=== PATIENT | female | born 1985 | race African-American/Black ===

== ENCOUNTER 2018-09-06 12:09 | Emergency (ER) | payer OTHER, MEDICAID ==
[2018-09-06] MEDS ORDERED: KETOROLAC 60 MG/2 ML VIAL IM STA (12:57)
[2018-09-06] MEDS ORDERED: DEXAMETHASONE 10 MG/ML VIAL PO STA (12:57)
--- NOTE | 2018-09-06 13:00 | ED Physician Documentation ---
PD HPI BACK PAIN - Stated complaint Stated Complaint: BACK PX - Chief complaint Chief Complaint: Back Pain - History obtained from History obtained from: Patient - History of Present Illness Timing - onset: Yesterday Timing - details: Gradual onset, Still present Location: Lower, Right Quality: Pain, Spasm Worsened by: Lifting, Twisting Contributing factors: Lifting Similar symptoms before: Diagnosis (Back strain) - Additional information Additional information: The patient is a 33-year-old female who works at [employer], and presents with lower back pain. Her pain started yesterday after lifting a resident of the floor. It is in her lower back radiating down her right leg. The pain today is worse than it was yesterday. She denies fever, urinary incontinence, numbness or weakness. She has history of similar symptoms occasionally in the past. Review of Systems Constitutional: denies: Fever Throat: denies: Sore throat Cardiac: denies: Chest pain / pressure Respiratory: denies: Dyspnea, Cough GI: denies: Abdominal Pain, Nausea, Vomiting : denies: Dysuria, Incontinent Skin: denies: Rash Musculoskeletal: reports: Back pain. 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 - Present Medications Home Medications: Ambulatory Orders Medication Instructions Recorded Confirmed Cyclobenzaprine [Flexeril] 10 mg PO TID PRN #20 tablet 09/06/18 Lidocaine Patch 5% [Lidoderm Patch] 1 patch TOP DAILY PRN #10 patch 09/06/18 - Allergies Allergies/Adverse Reactions: Allergies Allergy/AdvReac Type Severity Reaction Status Date / Time No Known Drug Allergies Allergy Verified 09/06/18 12:19 - Social History Does the pt smoke?: Yes Smoking Status: Current every day smoker Does the pt drink ETOH?: Yes Does the pt have substance abuse?: No - Immunizations Immunizations are current?: Yes PD ED PE NORMAL - Vitals Vital signs reviewed: Yes (Borderline hypertension initially.) - General General: Alert and oriented X 3, Well developed/nourished, Other (Overweight) - HEENT HEENT: Atraumatic, Pharynx benign - Neck Neck: No bony TTP, No adenopathy - Cardiac Cardiac: RRR - Respiratory Respiratory: No respiratory distress, Clear bilaterally - Abdomen Abdomen: Soft, Non tender - Back Back: No CVA TTP, No spinal TTP, Other (Tenderness to palpation in the para lumbar musculature bilaterally. No tenderness to palpation along the spinous processes.) - Derm Derm: No rash - Extremities Extremities: No edema, No calf tenderness / cord, Other (Straight leg raise test is negative bilaterally.) - Neuro Neuro: Alert and oriented X 3, No motor deficit, No sensory deficit, Other (Deep tendon reflexes 2+ and equal bilaterally at the patellar and Achilles tendons.) Results - Vitals Vitals: Vital Signs - 24 hr 09/06/18 09/06/18 12:17 13:58 Temperature 35.8 C L 36.6 C Heart Rate 90 85 Respiratory 18 16 Rate Blood Pressure 143/89 H 126/82 H O2 Saturation 99 99 Oxygen O2 Source Room air PD MEDICAL DECISION MAKING - ED course Complexity details: re-evaluated patient, considered differential, d/w patient, other (an L & I form was completed.) ED course: The patient's lower back pain is most consistent with muscle strain. The clinical presentation does not suggest epidural abscess, spinal stenosis, or cauda equina syndrome. Treatment in the emergency department included administration of ketorolac 60 mg IM, and dexamethasone 10 mg orally.. The patient is being discharged with prescription for Flexeril and for lidocaine patch. I discussed with her the expected course of illness, symptomatic treatment and outpatient follow-up, as well as potentially worrisome signs or symptoms that should prompt reevaluation in the emergency department. Departure - Departure Disposition: 01 Home, Self Care Clinical Impression: Acute lumbar myofascial strain Qualifiers: Encounter type: initial encounter Qualified Code(s): S39.012A - Strain of muscle, fascia and tendon of lower back, initial encounter Condition: Stable Instructions: ED Low Back Pain Injury Follow-Up: Oriana Randolph PA-C [Primary Care Provider] - Prescriptions: Cyclobenzaprine [Flexeril] 10 mg PO TID PRN #20 tablet PRN Reason: Spasms Lidocaine Patch 5% [Lidoderm Patch] 1 patch TOP DAILY PRN #10 patch PRN Reason: pain Comments: Apply ice pack to your lower back intermittently for the next 3 days. You can use lidocaine patch as prescribed if needed for pain. Take prednisone daily as prescribed. After you are no longer using prednisone, you can use ibuprofen, up to 800 mg 3 times daily. Follow-up with primary physician within 2 weeks. Call to schedule appointment. Return to the emergency department if you develop increasing pain, or otherwise worsening symptoms. Forms: Activity restrictions Discharge Date/Time: 09/06/18 13:59
[2018-09-06] MEDS ORDERED: CHERRY SYRUP 10 ML UDC PO ONE (13:14)
[2018-09-06 13:59] VITALS: BP 126/82
== END 2018-09-06 13:59 | disposition home or self-care (01) ==
LOC: ED 12:09
DX: F17.200 Nicotine dependence, unspecified, uncomplicated (principal); S39.012A Strain of muscle, fascia and tendon of lower back, initial encounter; X50.0XXA Overexertion from strenuous movement or load, initial encounter; X50.9XXA Other and unspecified overexertion or strenuous movements or postures, initial encounter; Y93.F2 Activity, caregiving, lifting; Y92.129 Unspecified place in nursing home as the place of occurrence of the external cause; Y99.0 Civilian activity done for income or pay
CPT/HCPCS: 1040M; 96372; 99283; A9270

== ENCOUNTER 2018-10-11 20:55 | Emergency (ER) | payer MEDICAID ==
[2018-10-11 21:12] VITALS: BP 120/90
[2018-10-11] MEDS ORDERED: CLINDAMYCIN 150 MG CAPSULE PO STA (21:16)
[2018-10-11] MEDS ORDERED: KETOROLAC 60 MG/2 ML VIAL IM STA (21:16)
[2018-10-11] MEDS ORDERED: HYDROcod/ACET 5/325 Prepack 4 PO STA (21:17)
--- NOTE | 2018-10-11 21:18 | ED Physician Documentation ---
PD HPI HEENT - Stated complaint Stated Complaint: TOOTH PX - Chief complaint Chief Complaint: Heent - History obtained from History obtained from: Patient - History of Present Illness Timing - onset: Other (She is a right mandibular molar that is been hurting for months, the pain is unbearable tonight. There is a little bit of facial swelling but she did not notice it. She drank some alcohol prior to arrival to try to ease the pain, but it did not help.) Review of Systems Constitutional: reports: Reviewed and negative Throat: reports: Dental pain / toothache. 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 - Present Medications Home Medications: Ambulatory Orders Medication Instructions Recorded Confirmed Clindamycin HCl [Clindamycin 300MG 300 mg PO Q6H #40 capsule 10/11/18 CAP] Hydrocodone/Acetaminophen 1 - 2 each PO Q6H PRN #10 tablet 10/11/18 [Hydrocodon-Acetaminophen 5-325] - Allergies Allergies/Adverse Reactions: Allergies Allergy/AdvReac Type Severity Reaction Status Date / Time No Known Drug Allergies Allergy Verified 10/11/18 21:11 - Social History Does the pt smoke?: Yes Smoking Status: Current every day smoker Does the pt drink ETOH?: Yes ETOH Use: Wine Does the pt have substance abuse?: No - Immunizations Immunizations are current?: Yes - POLST Patient has POLST: No PD ED PE NORMAL - Vitals Vital signs reviewed: Yes - General General: Alert and oriented X 3, Other (Intermittently tearful, smells of alcohol.) - HEENT HEENT: Other (There is a large cavity from her right mandibular wisdom tooth with very mild overlying lateral gingival swelling. There is no trismus or sublingual edema.) - Neck Neck: Supple, no meningeal sign, No bony TTP - Neuro Neuro: Alert and oriented X 3, Normal speech - Psych Psych: Normal mood, Normal affect Results - Vitals Vitals: Vital Signs - 24 hr 10/11/18 21:07 Temperature 36.6 C Heart Rate 103 H Respiratory 16 Rate Blood Pressure 120/90 H O2 Saturation 96 Oxygen O2 Source Room air Departure - Departure Disposition: 01 Home, Self Care Clinical Impression: Dental abscess Condition: Good Record reviewed to determine appropriate education?: Yes Instructions: ED Abscess Dental Prescriptions: Clindamycin HCl [Clindamycin 300MG CAP] 300 mg PO Q6H #40 capsule Hydrocodone/Acetaminophen [Hydrocodon-Acetaminophen 5-325] 1 - 2 each PO Q6H PRN #10 tablet PRN Reason: pain Comments: It is very important that you follow-up with a dentist. When it comes to dental problems like yours, the emergency department can only offer a short-term solution to your long-term problem. A couple of low cost options for dental care include: [facility] in [place], calls [phone] for an appointment Or [facility] in [place], call [phone] for an appointment. Do not drink or drive while taking narcotic pain medication. Note that many narcotic pain relievers also contain Tylenol/acetaminophen. Please ensure that your total dose of acetaminophen from all sources does not exceed 3 g (3000 mg) per day. You may get constipated while on this medication. Take a stool softener such as Colace twice a day while you are on it. Also add an [id number] laxative such as senna or MiraLAX on any day that you do not have a bowel movement. If you received a narcotic pain medication or sedative while in the emergency department, do not drive for the next 24 hours. Your blood pressure was elevated today on check into the emergency department. This does not mean that you have hypertension, it is a common phenomenon to come to the emergency department and have elevated blood pressure. I recommend that you see your primary care physician within the week to have it rechecked when you are feeling better.
== END 2018-10-11 21:26 | disposition home or self-care (01) ==
LOC: ED 20:55
DX: K04.7 Periapical abscess without sinus (principal); K02.9 Dental caries, unspecified; R03.0 Elevated blood-pressure reading, without diagnosis of hypertension; F17.200 Nicotine dependence, unspecified, uncomplicated
CPT/HCPCS: 96372; 99283; A9270

== ENCOUNTER 2018-10-12 11:31 | Emergency (ER) | payer MEDICAID ==
[2018-10-12] MEDS ORDERED: oxyCODONE 5 MG TABLET PO STA (13:23)
[2018-10-12] MEDS ORDERED: ONDANSETRON ODT 4 MG TABLET TL STA (13:23)
--- NOTE | 2018-10-12 13:26 | ED Physician Documentation ---
PD HPI HEENT - Stated complaint Stated Complaint: TOOTH PAIN - Chief complaint Chief Complaint: General - History obtained from History obtained from: Patient - History of Present Illness Timing - onset: How many weeks ago (1) Timing - details: Still present Location: Tooth Recently seen: Emergency Dept (last night) - Additional information Additional information: The patient is a 33-year-old female who presents with toothache in her right lower molar. Her pain started 1 week ago and has been worse the past 2 days. She was seen here in the emergency department last night and was started on clindamycin and hydrocodone. She presents now because of persistent pain despite hydrocodone. She has been unable to get into a dentist today. She has an appointment at [facility] tomorrow. She denies fever or difficulty swallowing. She was hyperventilating upon initial arrival, with associated nausea. Review of Systems Constitutional: denies: Fever Nose: denies: Congestion Throat: reports: Dental pain / toothache. denies: Sore throat Cardiac: denies: Chest pain / pressure Respiratory: denies: Cough GI: reports: Nausea. 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 - Present Medications Home Medications: Ambulatory Orders Medication Instructions Recorded Confirmed Clindamycin HCl [Clindamycin 300MG 300 mg PO Q6H #40 capsule 10/11/18 CAP] Hydrocodone/Acetaminophen 1 - 2 each PO Q6H PRN #10 tablet 10/11/18 [Hydrocodon-Acetaminophen 5-325] Ondansetron Odt [Zofran] 4 mg TL Q6H PRN #10 tablet 10/12/18 Oxycodone HCl/Acetaminophen 1 - 2 each PO Q6H PRN #10 tablet 10/12/18 [Percocet 5-325 mg Tablet] - Allergies Allergies/Adverse Reactions: Allergies Allergy/AdvReac Type Severity Reaction Status Date / Time No Known Drug Allergies Allergy Verified 10/11/18 21:11 - Social History Does the pt smoke?: Yes Smoking Status: Current every day smoker Does the pt drink ETOH?: Yes Does the pt have substance abuse?: No - Immunizations Immunizations are current?: Yes - POLST Patient has POLST: No PD ED PE NORMAL - Vitals Vital signs reviewed: Yes (hypertensive) - General General: Alert and oriented X 3, Well developed/nourished - HEENT HEENT: Atraumatic, EOMI, Ears normal, Pharynx benign, Other (There is a large cavity in the right lower molar, with associated tenderness to palpation. There is no gingival swelling.) - Neck Neck: Supple, no meningeal sign, No adenopathy - Cardiac Cardiac: RRR - Respiratory Respiratory: No respiratory distress, Clear bilaterally - Derm Derm: No rash - Neuro Neuro: Alert and oriented X 3, No motor deficit, Normal speech Results - Vitals Vitals: Vital Signs - 24 hr 10/12/18 10/12/18 11:51 13:55 Temperature 36.6 C 37.0 C Heart Rate 96 88 Respiratory 20 18 Rate Blood Pressure 149/90 H 116/68 O2 Saturation 96 Oxygen O2 Source Room air PD MEDICAL DECISION MAKING - ED course Complexity details: reviewed old records, re-evaluated patient, considered differential, d/w patient ED course: The patient's presentation is significant for persistent odontalgia secondary to dental abscess. Her pain is not adequately controlled with hydrocodone that was prescribed yesterday. In addition she was exhibiting hyperventilation upon her initial arrival. Her hyperventilation resolved while in the emergency department, and her nausea resolved as well. Treatment in the emergency department included administration of Zofran 4 mg sublingually, followed by oxycodone 1 tablet orally. She is being discharged with a prescription for Percocet, 10 tablets. She will continue taking clindamycin as previously prescribed. I discussed with her the importance of follow-up with the dentist, as well as potentially worrisome signs are sent to him is that should prompt reevaluation in the emergency department. Departure - Departure Disposition: 01 Home, Self Care Clinical Impression: Dental abscess, Hyperventilation syndrome Condition: Stable Instructions: ED Abscess Dental Prescriptions: Ondansetron Odt [Zofran] 4 mg TL Q6H PRN #10 tablet PRN Reason: Nausea / Vomiting Oxycodone HCl/Acetaminophen [Percocet 5-325 mg Tablet] 1 - 2 each PO Q6H PRN #10 tablet PRN Reason: pain Comments: Continue clindamycin as previously prescribed. You can use ibuprofen, up to 800 mg 3 times daily for its anti-inflammatory effect. You can use Percocet as prescribed as needed for pain. Follow-up with dentist tomorrow as previously planned. Return to the emerge department if you develop increasing difficulty swallowing, facial swelling, or otherwise worsening symptoms. Discharge Date/Time: 10/12/18 13:55
[2018-10-12 14:15] VITALS: BP 116/68
== END 2018-10-12 13:55 | disposition home or self-care (01) ==
LOC: ED 11:31
DX: K04.7 Periapical abscess without sinus (principal); F45.8 Other somatoform disorders; F17.200 Nicotine dependence, unspecified, uncomplicated
CPT/HCPCS: 99283; A9270; Q0162